=== PATIENT | female | born 1965 | race Caucasian/White ===

== ENCOUNTER 2022-03-13 16:13 | Outpatient (CLI) | payer BC, SELFPAY ==
--- OUTSIDE RECORDS SUMMARY | 2022-03-13 07:30 | XMS_ITS | Clinical Summary ---
:1965 Author Organization [facility] [place] [address] Care Team Providers Name Role Phone Pcp, No Primary Care Provider Unavailable Allergies No known active allergies Medications Medication Sig Dispensed Refills Start Date End Date Status naproxen (NAPROSYN) Take 1 tablet by 0 02/07/2017 Active 375 mg tablet mouth 2 times daily with meals. ibuprofen (ADVIL; Take 1 tablet by 0 02/07/2017 Active MOTRIN) 200 mg tablet mouth 4 times daily if needed. loratadine (CLARITIN) Take 1 tablet by 0 02/07/2017 Active 10 mg tablet mouth once daily. diaphragms, contoured Use as directed. 1 Each 0 01/05/2018 Active (CAYA CONTOURED) 60-85 Insert vaginally mm dprh and leave in for at least 6 hours after intercourse/ cyanocobalamin Taking 1 tab three 0 01/29/2018 Active (VITAMIN B12) 1,000 times weekly mcg tablet cholecalciferol Take 2,000 Units 0 03/02/2018 Active (VITAMIN D3) 2,000 by mouth. unit capsule metoprolol succinate Take 1 Tablet (25 90 Tablet 3 08/03/2021 Active (TOPROL XL) 25 mg mg) by mouth once Sustained-Release daily. tabletIndications: Tachycardia Magnesium 200 mg Take 200-400 mg 30 Tablet 0 08/06/2021 Active tabIndications: daily. Prefer Tachycardia magnesium glycinate or citrate or malate vitamin D3-vitamin K2, Take 1 Tablet by 60 Tablet 0 08/06/2021 Active MK4, (K2 + D3) mouth once daily. 1,000-100 unit-mcg tab tabletIndications: Vitamin D deficiency estradiol 0.05 mg/24 Apply 1 Patch on 12 Patch 4 09/25/2021 Active hr (CLIMARA) 0.05 dry, clean, mg/24 hr hairless skin once patchIndications: weekly. Perimenopausal vasomotor symptoms progesterone Take 1 Capsule 90 Capsule 4 10/25/2021 Active micronized (100 mg) by mouth (Prometrium) 100 mg at bedtime. This capsuleIndications: product contains Encounter for IUD peanut oil. Please removal verify patient allergies. acetaminophen Take 1-2 Tablets 100 Tablet 0 11/19/2021 Active (TYLENOL) 325 mg (325-650 mg) by tabletIndications: mouth every 4 Menometrorrhagia hours if needed (mild pain). Max acetaminophen dose: 4000mg in 24 hrs. ibuprofen (ADVIL; Take 2-4 Tablets 100 Tablet 0 11/19/2021 Active MOTRIN) 200 mg (400-800 mg) by tabletIndications: mouth every 6 Menometrorrhagia hours if needed for Pain (use as main pain medication, up to 3200mg in 24 hours). oxyCODONE (ROXICODONE) Take 1-2 Tablets 5 Tablet 0 11/19/2021 Active 5 mg immediate release (5-10 mg) by mouth tabletIndications: every 4 hours if Menometrorrhagia needed for Pain. oxyCODONE (ROXICODONE) Take 1 Tablet (5 5 Tablet 0 11/19/2021 Active 5 mg immediate release mg) by mouth every tabletIndications: 4 hours if needed Menometrorrhagia for Pain. lisinopriL (PRINIVIL; Take 1 Tablet (10 90 Tablet 1 01/28/2022 Active ZESTRIL) 10 mg mg) by mouth once tabletIndications: HTN daily. (hypertension) Hospital, Clinic, or Other Ordered Dose Route Frequency Start Date End Date Status Facility Administered Medication levonorgestrel intrauterine 1 Device IU Q 5 YEARS 09/20/2021 Active device (MIRENA) 1 DeviceIndications: Visit for insertion of intrauterine device Active Problems Problem Noted Date Pap smear for cervical cancer screening 08/31/2021 Overview: 08/2021 NIL/HPV Negative. PLAN: Pap/HPV d ue 08/2026 Anxiety 03/01/2020 Dysphagia, oral phase 03/01/2020 Fatigue 03/01/2020 Myoclonus 03/01/2020 Paresthesia of skin 03/01/2020 Insomnia, psychophysiological 04/13/2018 Polyp of duodenum 01/23/2018 Gastroesophageal reflux disease 01/16/2018 Family history of malignant neoplasm of gastrointestin al tract 01/19/2007 Overview: Screening to start at 45 Overview: Overview: Screening to start at 45 Migraine, unspecified, without mention of intractable migraine without 01/19/2007 mention of status migrainosus Resolved Problems Problem Noted Date Resolved Date Other screening mammogram 01/19/2007 01/11/2014 Overview: 12/2006--bruce Padilla Screening for malignant neoplasm of the cervix 01/19/2007 01/11/2014 Overview: PAP-06/2009 normal, Dr. Li Immunizations Name Administration Dates Next Due COVID-19 vaccine (MetGen-J&J) PF, MDV 08/05/2020 Hepatitis A (Adult) 02/02/2020, 01/15/2019 Influenza Virus, Unspecified 03/18/2016, 03/23/2015 Influenza, IIV4 03/01/2020 Influenza, IIV4 (=>6mos) MDV 02/28/2017 Td (Age >=7 Years) 04/24/2012, 11/09/2004 Tdap 01/19/2007 Zoster (Shingrix-RZV, recombinant) 02/02/2020, 01/15/2019 Family History Medical History Relation Name Comments Nephrolithiasis Brother Hypertension Father PAD Peripheral vascular disease Father Diabetes Maternal Grandmother Breast canc er, postmenopausal Postmenopausal breast cancer Maternal Grandmother post menopause Diabetes Maternal Uncle Diabetes Mother Dx: 50's, hypert ension Hypertension Mother Nephrolithiasis Mother Alzheimer's disease Other Arthritis Other Heart attack Paternal Grandfather Mi in 60's Cancer-colon Paternal Grandmother 82 Cancer-colon Paternal Uncle 1 d. age 58 Alcohol/Drug Paternal Uncle 2 Psychiatric illness Sister Asthma No Family History Cancer-ovarian No Family History Cancer-prostate No Family History Relation Name Status Comments Brother Father Maternal Grandmother Maternal Uncle Mother Other Paternal Grandfather (Age 82) Paternal Grandmother Paternal Uncle 1 Paternal Uncle 2 Sister Social History Tobacco Use Types Packs/Day Years Used Date Never Smoker Smokeless Tobacco: Never Used Tobacco Cessation: Counseling Given: Yes Alcohol Use Standard Drinks/Week Comments Yes 0 (1 standard drink = 0.6 oz pure alcoho l) 2 x per month Alcohol Habits Answer Date Recorded How often do you have a drink containing alcohol? Monthly or less 03/01/2020 How many drinks containing alcohol do you have on a 1 or 2 03/01/2020 typical day when you are drinking? How often do you have six or more drinks on one Never 03/01/2020 occasion? Comment: 2 x per month 02/07/2017 Sex Assigned at Date Recorded Female 01/01/2021 7:12 AM CDT Obstetrics History Para Term AB IAB SAB Ectopic Multiple Living Live Births 4 1 1 0 3 1 2 0 0 1 Date Outcome GA Total Labor/2nd/3rd Weight Sex Delivery Anes PTL Donna A 1 A5 Name Clin Labor SAB SAB IAB 04/12 Term 40w 4.14 kg M /2002 0d (9 lb 2 oz) Last Filed Vital Signs Vital Sign Reading Time Taken Comments Blood Pressure 130/69 11/19/2021 9:43 AM CDT Pulse 83 11/19/2021 9:43 AM CDT Temperature 36 ??C (96.8 ??F) 11/19/2021 8:49 AM CDT Respiratory Rate 16 11/19/2021 9:43 AM CDT Oxygen Saturation 100% 11/19/2021 9:43 AM CDT Inhaled Oxygen Concentration - - Weight 84.7 kg (186 lb 11.7 oz) 11/19/2021 7:00 AM CDT Height 165.1 cm (5' 5) 11/19/2021 7:00 AM CDT Body Mass Index 31.07 11/19/2021 7:00 AM CDT Plan of Treatment Upcoming Encounters Date Type Specialty Care Team Description 03/14/2022 Office Visit Nicole Storm MD [address] [place] [address] (Wo rk) Health Maintenance Due Date Last Done Comments Hepatitis C screening for age 0712/20/1984 18-79 COVID-19 vaccine series (4 - 12/26/2021 10/31/2021, 021, Booster for Rianna series) 08/05/2020 Influenza for age 50-64 01/31/2022 03/01/2020, 02/28/2017, 03/18/2016, Additional history exists Tetanus booster 04/24/2022 04/24/2012, 01/19/2007, 11/09/2004 Mammogram for age 45-75 07/20/2022 07/20/2021, 06/30/2020, 05/21/2019, Additional history exists Depression screening for age 12+ 09/14/2022 09/14/2021, , 03/02/2020, Additional history exists BMI (ht and wt on same day) for 11/16/2022 11/16/2021, 08/31, age 18+ 08/03/2021, Additional history exists Lipids for age 45-75 03/01/2025 03/01/2020, 01/02/2017, 11/22/2009, Additional history exists Pap test for age 21-65 09/12/2026 09/12/2021, 09/12/2021, 06/02/2016 ([facility] Additional history exists Colonoscopy through age 75 06/16/2027 06/16/2017 Tdap Completed 01/19/2007 Zoster (shingles) series for age Completed 02/02/2020, 50+ Results Not on filefrom Last 3 Months Insurance Payer Benefit Plan / Subscriber ID Effective Dates Phone Addre ss Type Group BLUE CROSS BLUE CROSS OF [id number] 2017-Presen [address] [place] [address] BLUE CROSS BLUE CROSS OF [id number] 2017-Pres [address] [facility] [place] [address] Jayro Rubio Personal/Family Spouse 1962 [address] (Home) [place] [phone] [place] , ([place]) [place] [address] Advance Directives Documents on File Type Date Recorded Patient Director Of Special Services Explanati on Healthcare Directive 06/19/2015 12:00 AM 07/08/03 Latest Code Status on File Code Status Date Activated Date Inactivated Comments Full Code 11/19/2021 6:09 AM 11/19/2021 12:27 PM Code Status Discussion: Reviewed Preferences Full Code 06/19/2015 10:54 AM 06/19/2015 5:53 PM Care Teams 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
[2022-03-13 09:28] LABS: Albumin* 4.1 g/dL (3.3-5.0); Chloride* 100 mmol/L (96-114)
[2022-03-13 09:29] LABS: Potassium* 4.2 mmol/L (3.6-5.1); Sodium* 135 mmol/L (135-149)
[2022-03-13 09:31] LABS: Aspartate Amino Transferase* 17 U/L (12-35); Blood Urea Nitrogen* 13 mg/dL (7-30); Carbon Dioxide* 29 mmol/L (20-32); Cholesterol* 194 mg/dL (90-199); Creatinine* 0.8 mg/dL (0.5-1.5); Estimated Glomerular Filt Rate 87 ml/min; Glucose* 90 mg/dL (60-115); Total Protein* 6.3 g/dL (6.0-8.3)
[2022-03-13 09:32] LABS: Alanine Aminotransferase* 9 U/L (4-35); Alkaline Phosphatase* 68 U/L (40-150); Calcium* 9.2 mg/dL (8.4-10.6); HDL Cholesterol* 68 mg/dL (>=50); LDL Cholesterol Calculated 112 mg/dL (<100); Triglycerides* 70 mg/dL (40-149)
[2022-03-13 09:45] LABS: Vitamin D 25 Hydroxy* 44 ng/mL (30-80)
[2022-03-13 10:17] LABS: Vitamin B12* 870 pg/mL (243-894)
== END 2022-03-13 16:14 | disposition home or self-care (01) ==
PROVIDERS: PCP Family Medicine; Visit Provider Family Medicine
DX: I10 Essential (primary) hypertension (principal); E55.9 Vitamin D deficiency, unspecified; Z13.6 Encounter for screening for cardiovascular disorders; Z86.39 Personal history of other endocrine, nutritional and metabolic disease
CPT/HCPCS: 80053; 80061; 82306; 82607

== ENCOUNTER 2023-04-01 07:30 | Outpatient (CLI) | payer BC, SELFPAY | END 2023-04-01 07:31 | disposition home or self-care (01) | LOC: NFLDREF 04-02 19:03 | PROVIDERS: PCP Family Medicine; Referring Provider Family Medicine; Visit Provider Family Medicine | DX: I10 Essential (primary) hypertension (principal); Z13.6 Encounter for screening for cardiovascular disorders | CPT/HCPCS: 80053; 80061 ==

== ENCOUNTER 2024-01-15 14:25 | Outpatient (CLI) | payer BC, SELFPAY ==
--- OUTSIDE RECORDS SUMMARY | 2024-01-15 14:31 | XMS_ITS | Clinical Summary ---
Author Organization [facility] Address [place], [place] [address] Care Team Providers Care Hog Slaughterer Name Role Phone Pcp, No Primary Care Provider Unavailabl e Allergies No known active allergies Medications Medication Sig Dispensed Refills Start Date End Date Status naproxen (NAPROSYN) 375 mg tablet Take 1 tablet by mouth 2 times daily with meals. 0 02/07/2017 Active ibuprofen (ADVIL; MOTRIN) 200 mg tablet Take 1 tablet by mouth 4 times daily if needed. 0 02/07/2017 Active loratadine (CLARITIN) 10 mg tablet Take 1 tablet by mouth once daily. 0 02/07/2017 Active diaphragms, contoured (CAYA CONTOURED) 60-85 mm dprh Use as directed. Insert vaginally and leave in for at least 6 hours after intercourse/ 1 Each 01/05/2018 Active cyanocobalamin (VITAMIN B12) 1,000 mcg tablet Taking 1 tab three times weekly 0 01/29/2018 Active cholecalciferol (VITAMIN D3) 2,000 unit capsule Take 2,000 Units by mouth. 03/02/2018 Active metoprolol succinate (TOPROL XL) 25 mg Sustained-Release tabletIndications :Tachycardia Take 1 Tablet (25 mg) by mouth once daily. 90 Tablet 3 08/03/2021 Active Magnesium 200 mg tabIndications:Ta chycardia Take 200-400 mg daily. Prefer magnesium glycinate or citrate or malate 30 Tablet 08/06/2021 Active vitamin D3-vitamin K2, MK4, (K2 + D3) 1,000-100 unit-mcg tab tabletIndications :Vitamin D deficiency Take 1 Tablet by mouth once daily. 60 Tablet 08/06/2021 Active progesterone micronized (Prometrium) 100 mg capsuleIndication s:Encounter for IUD removal Take 1 Capsule (100 mg) by mouth at bedtime. This product contains peanut oil. Please verify patient allergies. 90 Capsule 4 10/25/2021 Active acetaminophen (TYLENOL) 325 mg tabletIndications :Menometrorrhagia Take 1-2 Tablets (325-650 mg) by mouth every 4 hours if needed (mild pain). Max acetaminophen dose: 4000mg in 24 hrs. 100 Tablet 11/19/2021 Active ibuprofen (ADVIL; MOTRIN) 200 mg tabletIndications :Menometrorrhagia Take 2-4 Tablets (400-800 mg) by mouth every 6 hours if needed for Pain (use as main pain medication, up to 3200mg in 24 hours). 100 Tablet 11/19/2021 Active lisinopriL (PRINIVIL; ZESTRIL) 10 mg tabletIndications :HTN (hypertension) Take 1 Tablet (10 mg) by mouth once daily. 90 Tablet 1 01/28/2022 Active estradioL (VAGIFEM) 10 mcg tab vaginal tablet 05/13/2023 Active Active Problems Problem Noted Date Diagnosed Date Fibroid 04/03/2022 Pap smear for cervical cancer screening 09/01/19 22 Overview: 08/2021 NIL/HPV Negative. PLAN: Pap/HPV due 08/2026 Anxiety 03/01/2020 Dysphagia, oral phase 03/01/2020 Fatigue 03/01/2020 Myoclonus 03/01/2020 Paresthesia of skin 03/01/2020 Insomnia, psychophysiological 04/13/2018 Polyp of duodenum 01/23/2018 Gastroesophageal reflux disease 01/16/2018 Family history of malignant neoplasm of gastrointestinal tract 01/19/2007 Overview: Screening to start at 45 Overview: Overview: Screening to start at 45 Migraine, unspecified, witho ut mention of intractable migraine without mention of status migrainosus 01/19/2007 Resolved Problems Problem Noted Date Diagnosed Date Resolved Date Other screening mammogram 01/19/2007 Overview: 12/2006--Piper, bruce Screening for malignant neop lasm of the cervix 01/19/2007 01/11/2014 Overview: PAP-06/2009 bruce, Dr. Li Immunizations Name Administration Dates Next Due COVID-19 vaccine (Rianna-J&J) PF, MDV Hepatitis A (Adult) 02/02/2020,01/15/2019 Influenza RIV4 (Age 18+ Years) PRESERV FREE 03/02 Influenza Virus, Unspecified 03/18/2016,03/23/20 15 Influenza, IIV4 03/01/2020 Influenza, IIV4 (=>6mos) MDV 02/28/2017 Td (Age >=7 Years) 04/24/2012,11/09/2004 Tdap 03/12/2022,01/19/2007 Zoster (Shingrix-RZV, recombinant) 02/02/2020, Family History Medical History Relation Name Comments Nephrolithiasis Brother Hypertension Father PAD Peripheral vascular disease Father Diabetes Maternal Grandmother Breast cancer, postmenopausal Postmenopausal breast cancer Maternal Grandmother post menopause Diabetes Maternal Uncle Diabetes Mother Dx: 50's, hyper tension Hypertension Mother Nephrolithiasis Mother Alzheimer's disease Other Arthritis Other Heart attack Paternal Grandfather Mi in 6 0's Cancer-colon Paternal Grandmother 82 Cancer-colon Paternal Uncle [...] Tobacco Use Types Packs/Day Years Used Date Smoking Tobacco: Never Smokeless Tobacco: Never Tobacco Cessation:Counseling Given: Yes Alcohol Use Standard Drinks/Week Comments Yes 0 (1 standard drink = 0.6 oz pur e alcohol) 2 x per month PHQ-2 Answer Date Recorded PHQ-2 TOTAL SCORE 0 09/12/2021 Social Connections Answer Date Recorded Frequency of Communication with Friends and Fami ly Not on file 05/30/2021 Financial Resource Strain Answer Date R ecorded Difficulty of Paying Living Expenses Not on file 05/30/2021 Difficulty of Paying Living Expenses Not on file 05/30/2021 Sex and Gender Information Value Date Recorded Sex Assigned at Female 01/01/2021 7:12 AM CDT Gender Identity Female 01/01/2021 7:12 AM CDT Sexual Orientation Straight 01/01/2021 7: 12 AM CDT Obstetrics History Para Term AB IAB SAB Ectopic Multiple Livin g Live Births 4 1 1 0 3 1 2 0 0 1 Date Outcome GA Total Labor Labor/2nd/3rd Weight Sex Type Anes PTL Donna A1 A5 Name Clin SAB SAB IAB 2002 Term 40w0 d 4.14 kg (9 lb 2 oz) M C-Sec tion Last Filed Vital Signs Vital Sign Reading Time Taken Comments Blood Pressure 136/70 06/27/2023 2:12 PM GARMENT CUTTER Pulse 82 06/27/2023 2:12 PM GARMENT CUTTER Temperature 36.7 ??C (98 ??F) 06/27/2023 2:12 PM GARMENT CUTTER Respiratory Rate 16 06/27/2023 2:12 PM GARMENT CUTTER Oxygen Saturation 98% 06/27/2023 2:12 PM GARMENT CUTTER Inhaled Oxygen Concentration - - Weight 77.1 kg (170 lb) 06/27/2023 2:12 PM GARMENT CUTTER Height 165.1 cm (5' 5) 11/19/2021 7:00 AM CDT Body Mass Index 28.29 11/19/2021 7:00 AM CDT Plan of Treatment Health Maintenance Due Date Last Done Comments HIV for age 15-65 1981 Hepatitis C screening for age 18-79 1984 Depression screening for age 12+ 09/14/2022 09/14/2021, 09/12/2021, 03/02/2020, Additional history exists BMI (ht and wt on same day) for age 18+ 11/16/2022 11/16/2021, 09/12/2021, 08/03/2021, Additional history exists Influenza for age 50-64 02/01/2024 03/12/20 22, 03/01/2020, 02/28/2017, Additional history exists Mammogram for age 45-75 07/30/2024 07/31/19 24, 07/26/2022, 07/20/2021, Additional history exists Lipids for age 45-75 03/01/2025 03/01/2020, 01/02/2017, 11/22/2009, Additional history exists Pap test for age 21-65 09/12/2026 , 09/12/2021, 06/02/2016 ([facility] Additional history exists Colonoscopy through age 75 06/16/2027 06/16/2017 Tetanus booster 03/12/2032 03/12/2022, 04/03, 01/19/2007, Additional history exists Zoster (shingles) series for age 50+ Completed 02/02/2020, 01/15/2019 Tdap Completed 03/12/2022, 01/19/2007 COVID-19 vaccine series Completed 03/12/20, 04/11/2022, 10/31/2021, Additional history exists Pneumococcal series for age 6-64 Aged Out No longer eligible based on patient's age to complete this topic Procedures Procedure Name Priority Date/Time Associated Diagnosis Comments XR MAMMO PREMA BILAT SCREEN Routine 07/31/2023 10:42 AM GARMENT CUTTER Visit for screening mammogram HPV THIN PREP Routine 09/12/2021 10:00 AM CDT Screening for malignant neoplasm of cervix LIPID PANEL Routine 03/01/2020 9:18 AM CDT Screening cholesterol level SCAN-COLONOSCOPY 06/16/2017 8:30 AM GARMENT CUTTER from Last 3 Months or Most Recently Relevant to Health Maintenance Results * XR MAMMO PREMA BILAT SCREEN (07/31/2023 10:42 AM GARMENT CUTTER) Anatomical Region Laterality Modality BREASTS, Breast Left, Breast Right Bilateral Mammography Impressions 07/31/2023 11:16 AM GARMENT CUTTER ??There is no radiographic evidence for malignancy. ??Recommend annual mammograms. MAMMOGRAM ASSESSMENT: ??ACR 1 Negative PATIENTS: You will also receive a letter with your examination results in an easy to read format. ??If you have questions about your results, please contact your referring provider. Narrative 07/31/2023 11:16 AM GARMENT CUTTER For Patients: As a result of the Century Cures Act, medical imaging exams and procedure reports are released immediately into your electronic medical record. You may view this report before your referring provider. If you have questions, please contact your health care provider. XR MAMMO PREMA BILAT SCREEN [[id number]] CLINICAL HISTORY: ??This is an asymptomatic 57 y.o. patient. INDICATION FOR EXAM: Mammogram Screening. TECHNIQUE: CC & MLO views were obtained. ??This study was evaluated with the assistance of Computer-Aided Detection. Breast Tomosynthesis was used in interpretation. COMPARISON FILM: Yes 07/26/22 [facility] 07/20/21 [facility] FINDINGS: ??The breasts have scattered areas of fibroglandular density. There are no dominant masses, suspicious micro calcifications or areas of architectural distortion. Emerald Baugh MD MAMMO * HPV HIGH RISK (09/12/2021 10:00 AM CDT) TYPE 16 Negative Negative 09/15/2021 7:40 AM CDT [facility] TYPE 18 Negative Negative 09/15/2021 7:40 AM CDT [facility] OTHER HIGH RISK TYPES Negative Negative 09/15/2021 7:40 AM CDT [facility] Other (Cervical) Non-Blood / Unknown 09/12/2021 10:00 AM CDT 09/13/2021 9:56 AM CDT Narrative [facility] - 09/15/2021 7:40 AM CDT HPV types 16, 18, 31, 33, 35, 39, 45, 51, 52, 56, 58, 59, 66 and 68 DNA were undetectable or below the pre-set threshold. Methodology: Roberth Chucho 4800 HPV Test Nicole Storm MD MICROBIOLOGY [facility] [address] [place] [address], * (ABNORMAL) LIPID PANEL (03/01/2020 9:18 AM CDT) CHOLESTEROL,TOTAL 209(H) 100 - 199 mg/dL 03/01/2020 2:40 PM CDT [facility] TRIGLYCERIDES 96 <150 mg/dL 03/01/2020 2:40 PM CDT [facility] HDL CHOLESTEROL 70 >40 mg/dL 0 2:40 PM CDT [facility] NON-HDL CHOLESTEROL 139 <145 mg/dl 03/01/2020 2:40 PM CDT [facility] CHOL/HDL RATIO 2.99 <4.50 03/01/2020 2:40 PM CDT [facility] LDL CHOLESTEROL 120 <=130 mg/dL 03/01/2020 2:40 PM CDT [facility] PROVIDER ORDERED STATUS FASTING 03/01/2020 2:40 PM CDT [facility] Blood BLOOD SPECIMEN / Unknown Venipuncture / Unknown 03/01/2020 9:18 AM CDT 03/01/2020 9:18 AM CDT Luzmaria Vega MD CHEMISTRY [facility] [address] [place] [address], [place] * SCAN-COLONOSCOPY (06/16/2017 8:30 AM GARMENT CUTTER) Narrative Procedure Note Dane Sousa DO - 06/16/2017 7:48 AM CST [facility] [address], [address], [place] [address] Patient Name: Cheryl Rubio Gender: Female Exam Date: 06/16/2017 Visit Number: [id number] Age: 51 Years 5 Months Date of : 1965 Attending MD: Dane Sousa DO Medical Record#: [id number] ----- Procedure: Colonoscopy Indications: Colorectal cancer screening Referring MD: Diane Calabrese MD Primary MD: Diane Calabrese MD PACKAGE SEALER MACHINE: cc: Adrian Li MD Medications: Intra Procedure Medications: Patient received monitored anesthesia care. Complications: No immediate complications Procedure: An examination of the heart and lungs was performed and found to be withinacceptable limits. The patient was therefore deemed a reasonablecandidate for endoscopy and monitored anesthesia care. The risks and benefits of the procedure were explained to the patient.After obtaining informed consent, the patient received monitoredanesthesia care and I passed the scope without difficulty via the rectumto the cecum. The appendiceal orifice and ic valve were identified. Thescope was retroflexed during the examination The quality of the prep wasgood (Miralax/Gatorade/2 tablets Bisacodyl/Magnesium Citrate). This was a complete examination throughout the entire colon. Findings: The entire colon was normal. Impression: Screening Colonoscopy Plan: Repeat colonoscopy in 10 years. If you have signs or symptoms of lower GI illness or a new diagnosis ofcolon cancer in an immediate family member, you should contact your GIprovider or your primary provider to discuss whether your next examshould be repeated sooner. We will attempt to contact you at appropriate intervals via U.S. mail. Wemay not be able to find you or contact you at that time, therefore youshould know that the responsibility for following our recommendation restswith you. If you don't hear from us at the time your procedure is due,please contact our office to schedule an appointment. If your contactinformation should change, please contact our office so that we can updateyour records. Electronically signed by: Dane Sousa DO 06/16/2017 Medications: Medication Dose Sig Description Comments Vitamin B-12 1,000 mcg tablet 1,000 mcg take 1 by Oral route every day Allergies: Medication Name Ingredient Reaction Comment NO KNOWN DRUG ALLERGIES Vital Signs: Date Time Systolic Diastolic Height Weight BMI 06/16/2017 809 AM 131 82 65 in 165.00 27.50 Race: Ethnicity: Not or Preferred Language: Dominican [facility] 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 PCP - General 01/03/22
== END 2024-01-15 14:26 | disposition home or self-care (01) ==
PROVIDERS: PCP Family Medicine; Visit Provider Internal Medicine Nephrology
DX: N20.0 Calculus of kidney (principal)
CPT/HCPCS: 82043; 82570; 87086

== ENCOUNTER 2024-01-30 07:44 | Outpatient (CLI) | payer BC, SELFPAY ==
--- OUTSIDE RECORDS SUMMARY | 2024-01-30 07:48 | XMS_ITS | Clinical Summary ---
Author Organization [facility] Address [place], [place] [address] Care Team Providers Care Windows Systems Architect Name Role Phone Pcp, No Primary Care [...] Comments Blood Pressure 136/70 06/27/2023 2:12 PM MEAT BONER Pulse 82 06/27/2023 2:12 PM MEAT BONER Temperature 36.7 ??C (98 ??F) 06/27/2023 2:12 PM MEAT BONER Respiratory Rate 16 06/27/2023 2:12 PM MEAT BONER Oxygen Saturation 98% 06/27/2023 2:12 PM MEAT BONER Inhaled Oxygen Concentration - - Weight 77.1 kg (170 lb) 06/27/2023 2:12 PM MEAT BONER Height 165.1 cm (5' 5) 11/19/2021 7:00 [...] 09/12/2026 , 09/12/2021, 06/02/2016 (Completed outside of [facility]), Additional history exists Colonoscopy through age [...] PREMA BILAT SCREEN Routine 07/31/2023 10:42 AM MEAT BONER Visit for screening mammogram HPV THIN PREP Routine 09/12/2021 10:00 AM CDT Screening for malignant neoplasm of cervix LIPID PANEL Routine 03/01/2020 9:18 AM CDT Screening cholesterol level SCAN-COLONOSCOPY 06/16/2017 8:30 AM MEAT BONER from Last 3 Months or Most Recently Relevant to Health Maintenance Results * XR MAMMO PREMA BILAT SCREEN (07/31/2023 10:42 AM MEAT BONER) Anatomical Region Laterality Modality BREASTS, Breast Left, Breast Right Bilateral Mammography Impressions 07/31/2023 11:16 AM MEAT BONER ??There is no radiographic evidence for malignancy. ??Recommend annual mammograms. MAMMOGRAM ASSESSMENT: ??ACR 1 Negative PATIENTS: You will also receive a letter with your examination results in an easy to read format. ??If you have questions about your results, please contact your referring provider. Narrative 07/31/2023 11:16 AM MEAT BONER For Patients: As a result of the Century Cures Act, medical imaging exams and procedure reports are released immediately into your electronic medical record. You may view this report before your referring provider. If you have questions, please contact your health care provider. XR MAMMO PREMA BILAT SCREEN [[id number]] CLINICAL HISTORY: ??This is an asymptomatic 57 y.o. patient. INDICATION FOR EXAM: Mammogram Screening. TECHNIQUE: CC & MLO views were obtained. ??This study was evaluated with the assistance of Computer-Aided Detection. Breast Tomosynthesis was used in interpretation. COMPARISON FILM: Yes 07/26/22 [facility] 07/20/21 [facility] FINDINGS: ??The breasts have scattered areas of fibroglandular density. There are no dominant masses, suspicious micro calcifications or areas of architectural distortion. Emerald Baugh MD MAMMO * HPV HIGH RISK (09/12/2021 10:00 AM CDT) TYPE 16 Negative Negative 09/15/2021 7:40 AM CDT [facility] TYPE 18 Negative Negative 09/15/2021 7:40 AM CDT [facility] OTHER HIGH RISK TYPES Negative Negative 09/15/2021 7:40 AM CDT [facility] Other (Cervical) Non-Blood / Unknown 09/12/2021 10:00 AM CDT 09/13/2021 9:56 AM CDT Narrative [facility] - 09/15/2021 7:40 AM CDT HPV types 16, 18, 31, 33, 35, 39, 45, 51, 52, 56, 58, 59, 66 and 68 DNA were undetectable or below the pre-set threshold. Methodology: Roberth Chucho 4800 HPV Test Nicole Storm MD MICROBIOLOGY [facility] [address] [place] [address], * (ABNORMAL) LIPID PANEL (03/01/2020 9:18 AM CDT) CHOLESTEROL,TOTAL 209(H) 100 - 199 mg/dL 03/01/2020 2:40 PM CDT [facility] TRIGLYCERIDES 96 <150 mg/dL 03/01/2020 2:40 PM CDT [facility] HDL CHOLESTEROL 70 >40 mg/dL 0 2:40 PM CDT [facility] NON-HDL CHOLESTEROL 139 <145 mg/dl 03/01/2020 2:40 PM CDT [facility] CHOL/HDL RATIO 2.99 <4.50 03/01/2020 2:40 PM CDT [facility] LDL CHOLESTEROL 120 <=130 mg/dL 03/01/2020 2:40 PM CDT [facility] PROVIDER ORDERED STATUS FASTING 03/01/2020 2:40 PM CDT [facility] Blood BLOOD SPECIMEN / Unknown Venipuncture / Unknown 03/01/2020 9:18 AM CDT 03/01/2020 9:18 AM CDT Luzmaria Vega MD CHEMISTRY [facility] [address] [place] [address], [place] * SCAN-COLONOSCOPY (06/16/2017 8:30 AM MEAT BONER) Narrative Procedure Note Dane Sousa DO - 06/16/2017 7:48 AM CST [facility] [address], [address], [place] [address] Patient Name: Cheryl Rubio Gender: Female Exam Date: 06/16/2017 Visit Number: [id number] Age: 51 Years 5 Months Date of : 1965 Attending MD: Dane Sousa DO Medical Record#: [id number] ----- Procedure: Colonoscopy Indications: Colorectal cancer screening Referring MD: Diane Calabrese MD Primary MD: Diane Calabrese MD POULTRY PACKER: cc: Adrian Li MD Medications: Intra Procedure [...] 27.50 Race: Ethnicity: Not or Preferred Language: Citizen Of [place] [facility] 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 PCP - General 01/03/22
--- NOTE | 2024-01-30 08:00 | CRLHL7_ITS ---
For Patients: As a result of the Century Cures Act, medical imaging exams and procedure reports are released immediately into your electronic medical record. You may view this report before your referring provider. If you have questions, please contact your health care provider. INDICATION: Flank pain. Evaluate for kidney stone. TECHNIQUE: Multiplanar CT examination of the abdomen and pelvis was performed without the use of intravenous contrast, renal stone protocol. COMPARISON: None. FINDINGS: Limited evaluation of the soft tissue organs without the use of intravenous contrast. Lower chest: No focal consolidation. Normal heart size. No pleural effusions or pneumothorax. Subsegmental atelectasis Liver: Unremarkable. Gallbladder: Cholelithiasis gallbladder thickening suggest cholecystitis. Biliary: Unremarkable. Pancreas: Within normal limits. Spleen: Unremarkable. Adrenal glands: Unremarkable. Renal/ureters/bladder: Normal in size. No hydronephrosis. There are several small nonobstructive urinary calculi within the collecting system of both kidneys. Limited evaluation for renal masses without the intravenous contrast. The ureters appear unremarkable. Small layering bladder calculus measuring 10 mm at the right bladder trigone. Pelvis: Unremarkable uterus. No adnexal masses. Gastrointestinal: No bowel wall thickening or bowel obstruction. Normal appendix. No significant colonic diverticulosis. Mild colonic stool burden. Vasculature: No aortic aneurysm. No significant atherosclerotic calcifications. Lymph nodes: No pathologic lymphadenopathy by size criteria. Peritoneum: No free fluid or pneumoperitoneum. No drainable fluid collections. Abdominal wall/soft tissues: Unremarkable. Bones: No acute osseous abnormalities. Mild degenerative changes of the thoracolumbar spine. IMPRESSION: 1. No hydronephrosis or obstructive urolithiasis. Small layering bladder calculus. 2. Cholelithiasis without CT evidence of acute cholecystitis. 3. Otherwise, no acute abdominopelvic pathology. Please note that all CT scans at this facility use dose modulation, iterative reconstruction, and/or weight-based dosing when appropriate to reduce radiation dose to as low as reasonably achievable. Dictated by Eddie Crawford MD @ 02/04/2024 9:42:08 AM (Electronically Signed)
== END 2024-01-30 07:45 | disposition home or self-care (01) ==
LOC: CT 07:45
PROVIDERS: PCP Family Medicine; Visit Provider Internal Medicine Nephrology
DX: N20.0 Calculus of kidney (principal); K80.20 Calculus of gallbladder without cholecystitis without obstruction; R10.9 Unspecified abdominal pain
CPT/HCPCS: 74176; 82340; 82436; 82507; 83735; 83945; 83986; 84105; 84133; 84300; 84392; 84560

== ENCOUNTER 2024-05-06 19:33 | Emergency (ER) | payer BC, SELFPAY ==
[2024-05-06 19:36] VITALS: BP 134/76; PULSE 66; RESP 16; TEMP 36.4; O2SAT 98; BMI 27.5
[2024-05-06 19:48] LABS: Appearance Urine Clear (Clear); Bilirubin Urine Negative (Negative); Blood Urine 3+ (Negative); Color Urine Yellow (Yellow); Glucose Urine Negative (Negative); Ketones Urine Negative (Negative); Leukocyte Esterase Urine 1+ (Negative); Nitrite Urine Negative (Negative); Protein Urine Negative (Negative); Specific Gravity Urine <= 1.005 (1.000-1.030); Urobilinogen Urine 0.2 (0.2-1.0)
--- NOTE | 2024-05-06 19:56 | CRLHL7_ITS ---
For Patients: As a result of the Century Cures Act, medical imaging exams and procedure reports are released immediately into your electronic medical record. You may view this report before your referring provider. If you have questions, please contact your health care provider. INDICATION: Left flank pain. History of kidney stones. COMPARISON: January 30, 2024 CT of the abdomen pelvis TECHNIQUE: CT of the abdomen and pelvis without intravenous contrast. FINDINGS: Please note that absence of intravenous contrast limits evaluation of soft tissue and vascular structures. Lung bases: No pleural effusion. Liver: Smooth hepatic contour. Gallbladder and biliary tree: Cholelithiasis. Otherwise, unremarkable noncontrast CT appearance of the biliary tree. Spleen: No splenomegaly. Pancreas: Unremarkable noncontrast CT appearance. Adrenal glands: Normal. Kidneys and ureters: Mild left hydronephrosis with an obstructing 4 millimeter calculus at the ureteropelvic junction. No right hydroureteronephrosis. Several nonobstructing bilateral renal calculi measuring up to 4 millimeters at the right upper renal pole. 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 Bladder: Two calculi are again noted in the right posterior bladder near the UVJ the largest of which measures 11 millimeters (2/119). Visualized reproductive organs: 2.7 centimeter soft tissue attenuation lesion is again noted adjacent to the posterior uterine wall (2/107). Gastrointestinal tract: No focal abnormally dilated loops of bowel. Peritoneal cavity: No free fluid or free air. Lymph nodes: No enlarged abdominal or pelvic lymph nodes by CT size criteria. Vessels: No abdominal aortic aneurysm. Abdominal and pelvic wall: Normal. Bones: There are osseous degenerative changes. IMPRESSION: 1. Mild left hydronephrosis with an obstructing 4 millimeter calculus at the ureteropelvic junction. 2. No right hydroureteronephrosis. Several nonobstructing bilateral renal calculi. 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 3. Two calculi are again noted in the right posterior bladder near the UVJ, the largest of which measures 11 millimeters. 4. A 2.7 centimeter soft tissue attenuation lesion is again noted adjacent to the posterior uterine wall, possibly a subserosal fibroid, but difficult to fully characterize on a noncontrast CT. Consider pelvic ultrasound to further assess. 5. Cholelithiasis. Please note that all CT scans at this facility use dose modulation, iterative reconstruction, and/or weight-based dosing when appropriate to reduce radiation dose to as low as reasonably achievable. Dictated by Shane Campoverde MD @ 05/06/2024 9:04:22 PM (Electronically Signed)
[2024-05-06 19:58] LABS: Bacteria Urine Few; Squamous Epithelial Cell Urine Few (None-Few)
[2024-05-06] MEDS: 0.9 % SODIUM CHLORIDE 500 ML 500 ML IV (20:20)
[2024-05-06 20:21] LABS: Basophils Absolute Auto 0.02 K/uL (0.00-0.30); Basophils Percent Auto 0.2 % (0.0-3.0); Eosinophils Absolute Auto 0.07 K/uL (0.00-0.50); Eosinophils Percent Auto 0.9 % (0.0-7.0); Hematocrit 39.4 % (33.0-51.0); Immature Granulocytes Abs Auto 0.07 K/uL (0.00-0.30); Immature Granulocytes Pct Auto 0.9 %; Lymphocytes Absolute Auto 1.65 K/uL (0.90-2.90); Lymphocytes Percent Auto 20.1 % (20-44); Mean Corpuscular HGB Conc 33 gm/dL (32-36); Mean Corpuscular Hemoglobin 29 pg (26-34); Mean Corpuscular Volume 89 fL (80-100); Monocytes Percent Auto 9.8 % (0.0-11.0); Neutrophils Absolute Auto 5.58 K/uL (1.7-7.0); Neutrophils Percent Auto 68.1 % (42.0-72.0); Platelet Count* 194 K/uL (140-440); RDW Coefficient of Variation % 13.5 % (11.5-15.5); Red Blood Count 4.43 m/uL (4.00-5.20); White Blood Count* 8.19 K/uL (4.50-11.00)
[2024-05-06 20:22] LABS: Slide Review Reflex No
[2024-05-06] MEDS: KETOROLAC 15 MG/ML inj IVP (20:31)
--- NOTE | 2024-05-06 20:32 | ED.GENADULT ---
HPI - General Adult General Date Seen: 05/06/24 Chief complaint: Flank Pain Stated complaint: Poss kidney stone, Hx of Time Seen by Provider: 05/06/24 19:41 Source: patient Mode of arrival: ambulatory Limitations: no limitations History of Present Illness HPI narrative: Patient is a 58-year-old who presents with left flank pain onset a few hours prior to arrival. She has had a kidney stone a couple of times and this feels similar. A couple of days ago she had some gross hematuria, she does have a bladder stone and attributed it to that. Flank pain started today. No nausea, vomiting, fevers or chills. No dysuria. She does feel like her urine output is decreased despite drinking a lot of water, and became concerned she might have a blockage related to kidney stone. Prior medical history reviewed. She does not smoke or drink, here with her . No allergies. Related Data Home Medications ?Medication ?Instructions ?Recorded ?Confirmed cyanocobalamin (vitamin B-12) 1,000 mcg PO QDAY 03/12/22 05/06/24 1,000 mcg capsule ibuprofen 200 mg capsule 200 mg PO Q6H PRN 03/12/22 05/06/24 naproxen 250 mg tablet 250 mg PO BID PRN 03/12/22 05/06/24 fluticasone propionate 50 1 spray intranasal QDAY PRN 04/04/23 05/06/24 mcg/actuation nasal spray,suspension (Flonase Allergy Relief) Previous Rx's ?Medication ?Instructions ?Recorded estradiol 10 mcg vaginal tablet 10 mcg vaginal 2XW #20 tabs 05/13/23 (Vagifem) lisinopril 10 mg tablet 10 mg PO QDAY #90 tabs 04/12/24 Allergies Allergy/AdvReac Type Severity Reaction Status Date / Time No Known Drug Allergies Allergy Verified 01/15/24 13:53 Review of Systems Status of ROS: Reports: 10 or more systems reviewed and unremarkable except as noted in History and below [facility] Medical History Migraine headache without aura ?G43.009 - Migraine without aura, not intractable, without status migrainosus (ICD-10) Depression (2018) ?F32.A - Depression, unspecified (ICD-10) Allergic rhinitis ?J30.9 - Allergic rhinitis, unspecified (ICD-10) Hypertension (01/03/21) ?I10 - Essential (primary) hypertension (ICD-10) History of cardiovascular stress test (07/2021) ?Z92.89 - Personal history of other medical treatment (ICD-10) History of Holter monitoring (08/07/21) ?Z98.890 - Other specified postprocedural states (ICD-10) History of kidney stones (2016) ?Z87.442 - Personal history of urinary calculi (ICD-10) Dysmenorrhea ?N94.6 - Dysmenorrhea, unspecified (ICD-10) History of non anemic vitamin B12 deficiency (2015) ?Z86.39 - Personal history of other endocrine, nutritional and metabolic disease (ICD-10) History of abnormal cervical Pap smear (1985) ?Z87.42 - Personal history of other diseases of the female genital tract (ICD-10) Insomnia ?G47.00 - Insomnia, unspecified (ICD-10) GERD (gastroesophageal reflux disease) (~2017) ?K21.9 - Gastro-esophageal reflux disease without esophagitis (ICD-10) Anxiety (2018) ?F41.9 - Anxiety disorder, unspecified (ICD-10) Surgical History History of hysteroscopy ?Z98.890 - Other specified postprocedural states (ICD-10) History of colonoscopy (06/16/17) ?Z98.890 - Other specified postprocedural states (ICD-10) History of D&C (11/19/21) ?Z98.890 - Other specified postprocedural states (ICD-10) History of section (04/12/03) ?Z98.891 - History of uterine scar from previous surgery (ICD-10) Family History Paternal Grandfather Coronary artery disease, Onset Age: 60 Father Peripheral vascular disease CKD (chronic kidney disease) Mother Diabetes, Onset Age: 50 Nephrolithiasis Maternal Grandmother Diabetes Breast cancer, Onset Age: 45 Uncle Colon cancer, Onset Age: 58 Diabetes Paternal Grandmother Colon cancer, Onset Age: 82 Sister Depression Brother Nephrolithiasis Other Uterine cancer Social History 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 Looks comfortable. Head: Normocephalic, atraumatic. Eyes: Sclera clear. Pupils equal and reactive. ENT: Mucous membranes moist. Neck: Supple without adenopathy. Heart: Regular rate and rhythm without murmur. Lungs: Clear. No increased work of breathing, crackles or wheezes. No CVA tenderness. Abdomen: Soft, nontender to palpation. Extremities: Well perfused, pulses intact. No significant edema. Neurologic: Alert, conversant. Speech fluent, face symmetric. Moves all extremities equally. Skin: Warm, dry well perfused. Affect: Normal. Const: Vital Signs, click to edit/add: Vital Signs - 24 hr 05/06/24 19:36 Temperature 97.6 F Pulse Rate [Pulse Oximeter] 66 Respiratory Rate 16 Blood Pressure [Ri ght Upper Arm] 134/76 Pulse Oximetry 98 Oxygen Delivery Me thod Room Air Documenting provider has reviewed patient's vital signs: yes Course Course ED Course: Suspect kidney stone based on overall presentation but rule out pyelonephritis, other renal pathology, pneumonia, hematoma, among others. CT of the abdomen ordered without contrast. CBC shows a normal white blood cell count of 8, hemoglobin of 13. Metabolic panel pending at this time. Urinalysis is notable for 3+ blood, 2-5 red cells and 10-25 white blood cells. Few squames, few bacteria. Initially she had declined the need for anything for pain but did change her mind. I have ordered Toradol 15 mg IV along with morphine 4 mg. She also had 500 mL of normal saline IV. CT scan by my review shows an approximately 4 mm stone in the proximal ureter with [id number] hydronephrosis. Other findings noted in the radiology report as linked below, no other acute findings. Her CBC is normal, her creatinine is increased to 1.6, she tells me it was checked a few days ago was 0.8 so this does represent an increase. Sodium slightly low at 131 which may be because she has been drinking large amounts of water. I did speak with Dr. Patton, who was on-call for Urology with [facility]. He does not feel that she needs transfer for admission but does agree with semi urgent outpatient follow-up. His clinic will contact her. In the meantime, I have elected to cover her with an antibiotic given the white blood cells in the urine. She does not have any other findings suggestive of sepsis. She says that she refuses to take Keflex because the pills are too big and she does not like the way they taste, so I have prescribed Macrobid instead. I have also prescribed oxycodone, 8 tablets if needed for more severe pain. Discussed reasons to return such as fever, nausea, vomiting, chills or severe uncontrolled pain. Vital Signs Vital signs: Initial Vital Signs Temperature 97.6 F 05/06/24 19:36 Temperature Source Temporal Artery Scan 05/06/24 19:36 Pulse Rate 66 05/06/24 19:36 Respiratory Rate 16 05/06/24 19:36 Blood Pressure 134/76 05/06/24 19:36 Blood Pressure Mean 95 05/06/24 19:36 Blood Pressure Position Sitting 05/06/24 19:36 Pulse Oximetry 98 05/06/24 19:36 Oxygen Delivery Method Room Air 05/06/24 19:36 Vital Signs Temperature 97.6 F 05/06/24 19:36 Pulse Rate 66 05/06/24 19:36 Respiratory Rate 16 05/06/24 19:36 Blood Pressure 134/76 05/06/24 19:36 Pulse Oximetry 98 05/06/24 19:36 Oxygen Delivery Method Room Air 05/06/24 19:36 Temperature 97.6 F 05/06/24 19:36 Pulse Rate 66 05/06/24 19:36 Respiratory Rate 16 05/06/24 19:36 Blood Pressure 134/76 05/06/24 19:36 Pulse Oximetry 98 05/06/24 19:36 Oxygen Delivery Method Room Air 05/06/24 19:36 Medications Administered Medications: Discontinued Medications Generic Name Dose Route Start Last Admin Trade Name Freq PRN Reason Stop Dose Admin Sodium Chloride 500 mls @ 500 mls/hr 05/06/24 19:56 05/06/24 21:26 0.9 % Sodium Chloride 500 Ml IV 05/06/24 20:55 Infused .Q1H ONE Infusion Ketorolac Tromethamine 15 mg 05/06/24 20:22 05/06/24 20:31 Ketorolac 15 Mg/Ml Inj IVP 05/06/24 20:23 15 mg ONCE ONE Administration Morphine Sulfate 4 mg 05/06/24 20:22 05/06/24 20:40 Morphine 4 Mg/Ml Inj IVP 05/06/24 20:23 Not Given ONCE ONE Medical Decision Making Lab Data Labs: Lab Results 05/06/24 05/06/24 Range/Units 19:41 20:10 WBC 8.19 (4.50-11.00) K/uL RBC 4.43 (4.00-5.20) m/uL Hgb 13.0 (12.0-16.0) gm/dL Hct 39.4 (33.0-51.0) % MCV 89 (80-100) fL MCH 29 (26-34) pg MCHC 33 (32-36) gm/dL RDW Coeff of Malachi 13.5 (11.5-15.5) % Plt Count 194 (140-440) K/uL Neut % (Auto) 68.1 (42.0-72.0) % Lymph % (Auto) 20.1 (20-44) % [place] % (Auto) 9.8 (0.0-11.0) % Eos % (Auto) 0.9 (0.0-7.0) % Baso % (Auto) 0.2 (0.0-3.0) % Neut # (Auto) 5.58 (1.7-7.0) K/uL Lymph # (Auto) 1.65 (0.90-2.90) K/uL [place] # (Auto) 0.80 (0.00-0.90) K/UL Eos # (Auto) 0.07 (0.00-0.50) K/uL Baso # (Auto) 0.02 (0.00-0.30) K/uL Abs Immat Gran (auto) 0.07 (0.00-0.30) K/uL Imm/Tot Granulo (auto) 0.9 % Sodium 131 L (135-149) mmol/L Potassium 3.7 (3.6-5.1) mmol/L Chloride 99 (96-114) mmol/L Carbon Dioxide 24 (20-32) mmol/L Anion Gap 8 (7-15) mEq/L BUN 29 (7-30) mg/dL Creatinine 1.6 H (0.5-1.5) mg/dL Estimated Creat Clear 34.91 Estimated GFR 37 ml/min Glucose 92 (60-115) mg/dL Calcium 9.1 (8.4-10.6) mg/dL Urine Color Yellow (Yellow) Urine Appearance Clear (Clear) Urine pH 6.0 (5.0-8.5) Ur Specific [place] <= 1.005 (1.000-1.030) Urine Protein Negative (Negative) Urine Glucose (UA) Negative (Negative) Urine Ketones Negative (Negative) Urine Blood 3+ A (Negative) Urine Nitrite Negative (Negative) Urine Bilirubin Negative (Negative) Urine Urobilinogen 0.2 (0.2-1.0) Ur Leukocyte Esterase 1+ A (Negative) Urine RBC 2-5 A (0-2) Urine WBC 10-25 A (0-5) Ur Squamous Epith Cells Few (None-Few) Urine Bacteria Few A (None) Discharge Plan Discharge Clinical Impression: Left ureteral stone Patient Disposition: Home, Self-Care Condition: Improved Instructions: Ureteral Stones (ED) Additional Instructions: Ibuprofen 400 mg 3 times daily with food. Make sure your staying hydrated. Take the Macrobid as prescribed. Oxycodone if needed for severe uncontrolled pain. If you have new symptoms such as fevers, chills, vomiting, severe uncontrolled pain, return to the ER at any time. Otherwise, I spoke with Dr. Patton with [facility], and you should hear back from them either tomorrow or Friday the . They will help you arrange for outpatient follow-up. Prescriptions: No Action cyanocobalamin (vitamin B-12) 1,000 mcg capsule 1,000 mcg PO QDAY ibuprofen 200 mg capsule 200 mg PO Q6H PRN naproxen 250 mg tablet 250 mg PO BID PRN fluticasone propionate [Flonase Allergy Relief] 50 mcg/actuation spray,suspension 1 spray intranasal QDAY PRN Rx Instructions: administer into each nostril estradiol [Vagifem] 10 mcg tablet 10 mcg vaginal 2XW Qty: 20 4RF Rx Instructions: Use nightly for 2 weeks, then twice weekly. lisinopril 10 mg tablet 10 mg PO QDAY Qty: 90 0RF Follow Up/Referrals: Provider,Not a Local [Primary Care Provider] - Stand Alone Forms: [employer] Info Instructions
[2024-05-06 20:35] LABS: Chloride* 99 mmol/L (96-114); Sodium* 131 mmol/L (135-149)
[2024-05-06 20:38] LABS: Anion Gap 8 mEq/L (7-15); Blood Urea Nitrogen* 29 mg/dL (7-30); Calcium* 9.1 mg/dL (8.4-10.6); Carbon Dioxide* 24 mmol/L (20-32); Creatinine* 1.6 mg/dL (0.5-1.5); Est. Creatinine Clearance* 34.91; Estimated Glomerular Filt Rate 37 ml/min; Glucose* 92 mg/dL (60-115); Potassium* 3.7 mmol/L (3.6-5.1)
--- NOTE | 2024-05-09 08:50 | ED_ITS ---
HPI - General Adult General Chief complaint: Flank Pain Stated complaint: Poss kidney stone, Hx of Time Seen by Provider: 05/06/24 19:41 Source: patient Mode of arrival: ambulatory Limitations: no limitations History of Present Illness HPI narrative: Was seen on 05/[address] Verdugo. Diagnosed with kidney stone. Nose discharge home. On Macrobid. Culture growing Staph coccus Lantus. Is sensitive to nitrofurantoin. Sensitive. Does not need a change in antibiotics based on sensitivities Related Data Home Medications ?Medication ?Instructions ?Recorded ?Confirmed cyanocobalamin (vitamin B-12) 1,000 mcg PO QDAY 03/12/22 05/06/24 1,000 mcg capsule ibuprofen 200 mg capsule 200 mg PO Q6H PRN 03/12/22 05/06/24 naproxen 250 mg tablet 250 mg PO BID PRN 03/12/22 05/06/24 fluticasone propionate 50 1 spray intranasal QDAY PRN 04/04/23 05/06/24 mcg/actuation nasal spray,suspension (Flonase Allergy Relief) Previous Rx's ?Medication ?Instructions ?Recorded estradiol 10 mcg vaginal tablet 10 mcg vaginal 2XW #20 tabs 05/13/23 (Vagifem) lisinopril 10 mg tablet 10 mg PO QDAY #90 tabs 04/12/24 Allergies Allergy/AdvReac Type Severity Reaction Status Date / Time No Known Drug Allergies Allergy Verified 01/15/24 13:53 [facility] Medical History Migraine headache without aura ?G43.009 - Migraine without aura, not intractable, without status migrainosus (ICD-10) Depression (2018) ?F32.A - Depression, unspecified (ICD-10) Allergic rhinitis ?J30.9 - Allergic rhinitis, unspecified (ICD-10) Hypertension (01/03/21) ?I10 - Essential (primary) hypertension (ICD-10) History of cardiovascular stress test (07/2021) ?Z92.89 - Personal history of other medical treatment (ICD-10) History of Holter monitoring (08/07/21) ?Z98.890 - Other specified postprocedural states (ICD-10) History of kidney stones (2016) ?Z87.442 - Personal history of urinary calculi (ICD-10) Dysmenorrhea ?N94.6 - Dysmenorrhea, unspecified (ICD-10) History of non anemic vitamin B12 deficiency (2015) ?Z86.39 - Personal history of other endocrine, nutritional and metabolic disease (ICD-10) History of abnormal cervical Pap smear (1985) ?Z87.42 - Personal history of other diseases of the female genital tract (ICD-10) Insomnia ?G47.00 - Insomnia, unspecified (ICD-10) GERD (gastroesophageal reflux disease) (~2017) ?K21.9 - Gastro-esophageal reflux disease without esophagitis (ICD-10) Anxiety (2018) ?F41.9 - Anxiety disorder, unspecified (ICD-10) Surgical History History of hysteroscopy ?Z98.890 - Other specified postprocedural states (ICD-10) History of colonoscopy (06/16/17) ?Z98.890 - Other specified postprocedural states (ICD-10) History of D&C (11/19/21) ?Z98.890 - Other specified postprocedural states (ICD-10) History of section (04/12/03) ?Z98.891 - History of uterine scar from previous surgery (ICD-10) Family History Paternal Grandfather Coronary artery disease, Onset Age: 60 Father Peripheral vascular disease CKD (chronic kidney disease) Mother Diabetes, Onset Age: 50 Nephrolithiasis Maternal Grandmother Diabetes Breast cancer, Onset Age: 45 Uncle Colon cancer, Onset Age: 58 Diabetes Paternal Grandmother Colon cancer, Onset Age: 82 Sister Depression Brother Nephrolithiasis Other Uterine cancer Social History 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: , 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, 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, 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 5times a week bike 30min daily, walk 3-4/ week nonsmoker, rare use of alcohol Smoking Status: Never smoker How often do you have a drink containing alcohol: 2-4 times a month AUDIT-C Alcohol total score: 2 Non-prescribed substance use: denies use Course Vital Signs Vital signs: Initial Vital Signs Temperature 97.6 F 05/06/24 19:36 Temperature Source Temporal Artery Scan 05/06/24 19:36 Pulse Rate 66 05/06/24 19:36 Respiratory Rate 16 05/06/24 19:36 Blood Pressure 134/76 05/06/24 19:36 Blood Pressure Mean 95 05/06/24 19:36 Blood Pressure Position Sitting 05/06/24 19:36 Pulse Oximetry 98 05/06/24 19:36 Oxygen Delivery Method Room Air 05/06/24 19:36 Vital Signs Temperature 97.6 F 05/06/24 19:36 Pulse Rate 66 05/06/24 19:36 Respiratory Rate 16 05/06/24 19:36 Blood Pressure 134/76 05/06/24 19:36 Pulse Oximetry 98 05/06/24 19:36 Oxygen Delivery Method Room Air 05/06/24 19:36 Temperature 97.6 F 05/06/24 19:36 Pulse Rate 66 05/06/24 19:36 Respiratory Rate 16 05/06/24 19:36 Blood Pressure 134/76 05/06/24 19:36 Pulse Oximetry 98 05/06/24 19:36 Oxygen Delivery Method Room Air 05/06/24 19:36 Medications Administered Medications: Discontinued Medications Generic Name Dose Route Start Last Admin Trade Name Freq PRN Reason Stop Dose Admin Sodium Chloride 500 mls @ 500 mls/hr 05/06/24 19:56 05/06/24 21:26 0.9 % Sodium Chloride 500 Ml IV 05/06/24 20:55 Infused .Q1H ONE Infusion Ketorolac Tromethamine 15 mg 05/06/24 20:22 05/06/24 20:31 Ketorolac 15 Mg/Ml Inj IVP 05/06/24 20:23 15 mg ONCE ONE Administration Morphine Sulfate 4 mg 05/06/24 20:22 05/06/24 20:40 Morphine 4 Mg/Ml Inj IVP 05/06/24 20:23 Not Given ONCE ONE Medical Decision Making Lab Data Labs: Lab Results 05/06/24 05/06/24 Range/Units 19:41 20:10 WBC 8.19 (4.50-11.00) K/uL RBC 4.43 (4.00-5.20) m/uL Hgb 13.0 (12.0-16.0) gm/dL Hct 39.4 (33.0-51.0) % MCV 89 (80-100) fL MCH 29 (26-34) pg MCHC 33 (32-36) gm/dL RDW Coeff of Malachi 13.5 (11.5-15.5) % Plt Count 194 (140-440) K/uL Neut % (Auto) 68.1 (42.0-72.0) % Lymph % (Auto) 20.1 (20-44) % [place] % (Auto) 9.8 (0.0-11.0) % Eos % (Auto) 0.9 (0.0-7.0) % Baso % (Auto) 0.2 (0.0-3.0) % Neut # (Auto) 5.58 (1.7-7.0) K/uL Lymph # (Auto) 1.65 (0.90-2.90) K/uL [place] # (Auto) 0.80 (0.00-0.90) K/UL Eos # (Auto) 0.07 (0.00-0.50) K/uL Baso # (Auto) 0.02 (0.00-0.30) K/uL Abs Immat Gran (auto) 0.07 (0.00-0.30) K/uL Imm/Tot Granulo (auto) 0.9 % Sodium 131 L (135-149) mmol/L Potassium 3.7 (3.6-5.1) mmol/L Chloride 99 (96-114) mmol/L Carbon Dioxide 24 (20-32) mmol/L Anion Gap 8 (7-15) mEq/L BUN 29 (7-30) mg/dL Creatinine 1.6 H (0.5-1.5) mg/dL Estimated Creat Clear 34.91 Estimated GFR 37 ml/min Glucose 92 (60-115) mg/dL Calcium 9.1 (8.4-10.6) mg/dL Urine Color Yellow (Yellow) Urine Appearance Clear (Clear) Urine pH 6.0 (5.0-8.5) Ur Specific [place] <= 1.005 (1.000-1.030) Urine Protein Negative (Negative) Urine Glucose (UA) Negative (Negative) Urine Ketones Negative (Negative) Urine Blood 3+ A (Negative) Urine Nitrite Negative (Negative) Urine Bilirubin Negative (Negative) Urine Urobilinogen 0.2 (0.2-1.0) Ur Leukocyte Esterase 1+ A (Negative) Urine RBC 2-5 A (0-2) Urine WBC 10-25 A (0-5) Ur Squamous Epith Cells Few (None-Few) Urine Bacteria Few A (None) Discharge Plan Discharge Clinical Impression: Left ureteral stone Patient Disposition: Home, Self-Care Condition: Improved Instructions: Ureteral Stones (ED) Additional Instructions: Ibuprofen 400 mg 3 times daily with food. Make sure your staying hydrated. Take the Macrobid as prescribed. Oxycodone if needed for severe uncontrolled pain. If you have new symptoms such as fevers, chills, vomiting, severe uncontrolled pain, return to the ER at any time. Otherwise, I spoke with Dr. Patton with [facility], and you should hear back from them either tomorrow or Friday the . They will help you arrange for outpatient follow- up. Prescriptions: No Action cyanocobalamin (vitamin B-12) 1,000 mcg capsule 1,000 mcg PO QDAY ibuprofen 200 mg capsule 200 mg PO Q6H PRN naproxen 250 mg tablet 250 mg PO BID PRN fluticasone propionate [Flonase Allergy Relief] 50 mcg/actuation spray,suspension 1 spray intranasal QDAY PRN Rx Instructions: administer into each nostril estradiol [Vagifem] 10 mcg tablet 10 mcg vaginal 2XW Qty: 20 4RF Rx Instructions: Use nightly for 2 weeks, then twice weekly. lisinopril 10 mg tablet 10 mg PO QDAY Qty: 90 0RF Follow Up/Referrals: Provider,Not a Local [Primary Care Provider] - Stand Alone Forms: [employer] Info Instructions
== END 2024-05-06 22:12 | disposition home or self-care (01) ==
PROVIDERS: Emergency Medicine; Emergency Provider Emergency Medicine
DX: N20.1 Calculus of ureter (principal)
CPT/HCPCS: 36415; 74176; 80048; 81001; 85025; 87086; 87186; 96374; 99281; 99283; 99284; J1885; J7030

== ENCOUNTER 2024-06-18 11:59 | Outpatient (CLI) | payer BC, SELFPAY ==
--- NOTE | 2024-06-18 12:15 | CRLHL7_ITS ---
For Patients: As a result of the Century Cures Act, medical imaging exams and procedure reports are released immediately into your electronic medical record. You may view this report before your referring provider. If you have questions, please contact your health care provider. INDICATION: Postmenopausal bleeding and abnormal uterine finding on recent CT. COMPARISON: CT 05/06/2024 TECHNIQUE: 2D fuentes scale and color Doppler images were acquired of the pelvis using a transabdominal and transvaginal approach. FINDINGS: Pedunculated right-sided uterine fibroid is again noted posteriorly which measures 3.8 x 2.9 x 2.7 cm. Uterus measures 7.0 cm in length by 3.6 cm in AP diameter by 3.9 cm in transverse dimension. The endometrial lining measures 4 mm in composite thickness. The right ovary measures 1.5 x 0.8 x 1.6 cm in size and the left ovary measures 2.7 x 1.0 x 2.3 cm. The ovaries demonstrate normal arterial and venous blood flow on color Doppler analysis. There are no suspicious fluid collections within the cul-de-sac. IMPRESSION: Pedunculated right posterior uterine fibroid measures 3.8 x 2.9 x 2.7 cm. Endometrial thickness 4 millimeters. Dictated by Kash Young MD @ 06/18/2024 1:45:04 PM (Electronically Signed)
== END 2024-06-18 12:00 | disposition home or self-care (01) ==
LOC: US 12:00
PROVIDERS: Visit Provider Obstetrics & Gynecology
DX: N95.0 Postmenopausal bleeding (principal); D25.9 Leiomyoma of uterus, unspecified
CPT/HCPCS: 76830; 76856